=== PATIENT | female | born 1995 | race Hispanic/Latino ===

== ENCOUNTER 2024-02-07 08:19 | Day surgery (SDC) | payer SELFPAY ==
[2024-02-06 10:04] VITALS: BMI 36.2
[2024-02-07 09:35] LABS: #Basophils 0.04 10x3/uL (0.0-0.2); %Basophils 0.5 % (0.0-1.0); %Eosinophils 2.9 % (0.0-10.0); %Monocytes 7.5 % (0.0-10.0); Hematocrit 39.9 % (36.0-47.0); Mean Corpuscular HGB CONC 35.1 g/dL (32.0-36.0); Mean Corpuscular Hemoglobin 32.8 pg (27.0-31.0); Mean Corpuscular Volume 93.4 fL (78.0-98.0); Mean Platelet Volume 9.3 fL (7.4-10.4); Platelet Count 322 10x3/uL (130-400); RBC Distribution Width 11.4 % (11.5-14.5); Red Blood Cell (RBC) Count 4.27 mill/uL (4.20-5.40)
[2024-02-07 09:43] LABS: BHCG - Serum Negative (NEGATIVE); Pregs Control Background? CLEAR/WHITE (CLR/WHITE); Pregs Control Bar Appear? YES (CONTROL BAR)
[2024-02-07] MEDS ORDERED: EPINEPHrine 1 MG/ML VIAL ONE (09:52)
[2024-02-07] MEDS ORDERED: fentaNYL 50 mcg/mL 1 mL Vial ONE (09:52)
[2024-02-07] MEDS ORDERED: Midazolam HCl 2 mg/2 ml Vial ONE ×2 (09:52→10:00)
[2024-02-07] MEDS ORDERED: Ropivacaine 0.5% HCl/PF (150 MG/30 ML VIAL) ONE (09:53)
[2024-02-07] MEDS ORDERED: Ropivacaine 0.2% HCl/PF 20 ML ONE (09:53)
[2024-02-07] MEDS ORDERED: Bupivacaine PF 0.5% 30 ML VIAL ONE (09:53)
[2024-02-07] MEDS ORDERED: fentaNYL PF 100 MCG/2 ML SYRINGE ONE (09:59)
[2024-02-07] MEDS ORDERED: Lidocaine 1% PF 5 ML VIAL ONE (09:59)
[2024-02-07] MEDS ORDERED: PROPOFOL 20 ML ONE (09:59)
[2024-02-07] MEDS ORDERED: Sodium Chloride 0.9% 100 ML ONE (10:06)
[2024-02-07] MEDS ORDERED: CEFAZOLIN 2 GM VIAL ONE (10:06)
[2024-02-07] MEDS ORDERED: Promethazine HCl 25 MG/ML VIAL IM PRN (10:45)
[2024-02-07] MEDS ORDERED: Ropivacaine 0.2% 550 ML 550 ML NERVE BLCK SCH (10:45)
[2024-02-07] MEDS ORDERED: HYDROcodone/Acetaminophen 5/325 mg Tablet PO PRN ×2 (10:45)
[2024-02-07] MEDS ORDERED: Zolpidem Tartrate 5 MG TAB PO PRN (10:45)
[2024-02-07] MEDS ORDERED: traMADol HCl 50 MG TAB PO PRN ×2 (10:45)
[2024-02-07] MEDS ORDERED: Ondansetron PF 4 MG/2 ML Vial IVP PRN (10:45)
[2024-02-07] MEDS ORDERED: Ondansetron PF 4 MG/2 ML Vial ONE (10:52)
[2024-02-07] MEDS ORDERED: Dexamethasone 20 MG/5 ML VIAL ONE (10:52)
[2024-02-07] MEDS ORDERED: PHENYLEPHRINE-NS 100 MCG/ML 10 ML SYRINGE ONE (10:53)
[2024-02-07] MEDS ORDERED: Ketorolac Tromethamine 30 MG (1 mL) VIAL IVP SCH (12:00)
== END 2024-02-07 15:25 | disposition home or self-care (01) ==
LOC: SDC 08:19
PROVIDERS: ATTEND Orthopaedic Surgery
PROC: 0QSK04Z Reposition Left Fibula with Internal Fixation Device, Open Approach (ICD-10-PCS; principal; 2024-02-07)
PROC: 0QSH04Z Reposition Left Tibia with Internal Fixation Device, Open Approach (ICD-10-PCS; principal; 2024-02-07)
DX: S82.852A Displaced trimalleolar fracture of left lower leg, initial encounter for closed fracture (principal); F32.A Depression, unspecified; Z79.899 Other long term (current) drug therapy; W01.0XXA Fall on same level from slipping, tripping and stumbling without subsequent striking against object, initial encounter
CPT/HCPCS: 84703; 85025; A4306; C1713; J0171; J0665; J1100; J2250; J2405; J2704; J2795; J3010; J3490